=== PATIENT | female | born 1940 | race Caucasian/White ===

== ENCOUNTER 2018-03-24 16:26 | Outpatient (CLI) | payer MEDICARE, OTHER ==
[2018-03-24 17:12] LABS: BASOPHILS # (AUTO) 0.1 10^3/uL (0.0-0.1); BASOPHILS % (AUTO) 1.1 %; EOSINOPHILS # (AUTO) 0.2 10^3/uL (0.0-0.7); LYMPHOCYTES # (AUTO) 1.6 10^3/uL (1.5-3.5); LYMPHOCYTES % (AUTO) 20.4 %; MEAN CORPUSCULAR HEMOGLOBIN 32.6 pg (27.0-31.0); MEAN CORPUSCULAR HGB CONC 33.2 g/dL (32.0-36.0); MEAN CORPUSCULAR VOLUME 98.2 fL (81.0-99.0); MEAN PLATELET VOLUME 8.5 fL (7.9-10.8); MONOCYTES # (AUTO) 0.4 10^3/uL (0.0-1.0); MONOCYTES % (AUTO) 5.2 %; NEUTROPHILS # (AUTO) 5.5 10^3/uL (1.5-6.6); NEUTROPHILS % (AUTO) 71.3 %; PLT - PLATELET COUNT 178 10^3/uL (130-450); RED CELL DISTRIBUTION WIDTH 16.5 % (12.0-15.0); WHITE BLOOD COUNT 7.7 x10^3/uL (4.8-10.8)
[2018-03-24 17:20] LABS: ALBUMIN 4.1 g/dL (3.2-5.5); ALBUMIN/GLOBULIN RATIO 1.2 (1.0-2.2); BILIRUBIN,TOTAL 0.6 mg/dL (0.2-1.0); CALCIUM 9.5 mg/dL (8.5-10.3); CREATININE 1.1 mg/dL (0.4-1.0); TOTAL PROTEIN 7.5 g/dL (6.7-8.2)
== END 2018-03-24 16:27 | disposition home or self-care (01) ==
LOC: LAB 16:26
PROVIDERS: ATTEND Specialist/Technologist Athletic Trainer
DX: M05.79 Rheumatoid arthritis with rheumatoid factor of multiple sites without organ or systems involvement (principal)
CPT/HCPCS: 36415; 80053; 85025; 85651

== ENCOUNTER 2018-11-24 17:43 | Outpatient (CLI) | payer MEDICARE ==
[2018-11-24 18:09] LABS: BASOPHILS % (AUTO) 0.8 %; EOSINOPHILS % (AUTO) 4.5 %; HGB - HEMOGLOBIN 12.4 g/dL (12.0-16.0); LYMPHOCYTES % (AUTO) 42.2 %; MEAN CORPUSCULAR HEMOGLOBIN 32.1 pg (27.0-31.0); MEAN CORPUSCULAR HGB CONC 32.5 g/dL (32.0-36.0); MEAN PLATELET VOLUME 10.6 fL (7.9-10.8); MONOCYTES % (AUTO) 3.2 %; NEUTROPHILS % (AUTO) 48.5 %; PLT - PLATELET COUNT 214 10^3/uL (130-450); RED BLOOD COUNT 3.86 10^6/uL (4.20-5.40); RED CELL DISTRIBUTION WIDTH 17.2 % (12.0-15.0); WHITE BLOOD COUNT 5.3 x10^3/uL (4.8-10.8)
[2018-11-24 18:13] LABS: ABNORMAL LYMPHS % (MANUAL) 0 %; BAND NEUTROPHILS % (MANUAL) 0 %
[2018-11-24 18:32] LABS: ALBUMIN 3.9 g/dL (3.2-5.5); ALBUMIN/GLOBULIN RATIO 1.1 (1.0-2.2); CALCIUM 9.7 mg/dL (8.5-10.3); CREATININE 0.9 mg/dL (0.4-1.0); CRP - C-REACTIVE PROTEIN 1.2 mg/dL (0-1.0); TOTAL PROTEIN 7.5 g/dL (6.7-8.2)
[2018-11-24 19:11] LABS: EOSINOPHILS # (MANUAL) 0.5 10^3/uL (0-0.7); LYMPHOCYTES # (MANUAL) 2.4 10^3/uL (1.5-3.5); LYMPHOCYTES % (MANUAL) 42 %; MONOCYTES # (MANUAL) 0.2 10^3/uL (0.0-1.0)
[2018-11-24 19:13] LABS: DIFFERENTIAL COMMENT MANUAL DIFFERENTIAL; PLATELET ESTIMATE, MANUAL NORMAL (130-450,000) (NORMAL); PLATELET MORPHOLOGY NORMAL APPEARANCE (NORMAL)
== END 2018-11-24 17:44 | disposition home or self-care (01) ==
LOC: LAB 17:43
PROVIDERS: ATTEND Internal Medicine
DX: I10 Essential (primary) hypertension (principal); R10.84 Generalized abdominal pain; D64.9 Anemia, unspecified
CPT/HCPCS: 36415; 80053; 83540; 84466; 85025; 85651; 86140

== ENCOUNTER 2018-12-02 10:51 | Outpatient (CLI) | payer MEDICARE ==
--- NOTE | 2018-12-03 16:03 | XRAY Report ---
Reason: WEIGHT LOSS Procedure Date: 12/02/2018 Accession Number: [id number] / [id number] Procedure: XR - Chest 2 View X-Ray CPT Code: 88422 FULL RESULT: EXAM: CHEST RADIOGRAPHY EXAM DATE: 12/02/2018 11:05 AM. CLINICAL HISTORY: Weight loss. COMPARISON: None. TECHNIQUE: 2 views. FINDINGS: Lungs/Pleura: No focal opacities evident. No pleural effusion. No pneumothorax. Normal volumes. Mediastinum: Heart and mediastinal contours are unremarkable. Other: None. IMPRESSION: Normal 2-view chest radiography. RADIA
== END 2018-12-02 10:52 | disposition home or self-care (01) ==
LOC: DI 10:51
PROVIDERS: ATTEND Internal Medicine
DX: R63.4 Abnormal weight loss (principal)
CPT/HCPCS: 71046

== ENCOUNTER 2018-12-28 15:02 | Outpatient (CLI) | payer MEDICARE | END 2018-12-28 15:03 | disposition critical access hospital (66) | LOC: EMS 15:02 | PROVIDERS: ATTEND Surgery | DX: R53.83 Other fatigue (principal); R11.0 Nausea; R50.9 Fever, unspecified | CPT/HCPCS: A0425; A0429 ==

== ENCOUNTER 2018-12-28 15:17 | Emergency (ER) | payer MEDICARE ==
[2018-12-28 16:00] LABS: BASOPHILS % (AUTO) 0.3 %; EOSINOPHILS # (AUTO) 0.1 10^3/uL (0.0-0.7); EOSINOPHILS % (AUTO) 1.6 %; LYMPHOCYTES # (AUTO) 0.9 10^3/uL (1.5-3.5); LYMPHOCYTES % (AUTO) 12.7 %; MEAN CORPUSCULAR HEMOGLOBIN 32.7 pg (27.0-31.0); MEAN CORPUSCULAR HGB CONC 33.2 g/dL (32.0-36.0); MEAN CORPUSCULAR VOLUME 98.4 fL (81.0-99.0); MEAN PLATELET VOLUME 11.2 fL (7.9-10.8); MONOCYTES # (AUTO) 0.3 10^3/uL (0.0-1.0); MONOCYTES % (AUTO) 4.9 %; NEUTROPHILS # (AUTO) 5.4 10^3/uL (1.5-6.6); NEUTROPHILS % (AUTO) 79.8 %; PLT - PLATELET COUNT 111 10^3/uL (130-450); RED BLOOD COUNT 3.06 10^6/uL (4.20-5.40); RED CELL DISTRIBUTION WIDTH 17.5 % (12.0-15.0); WHITE BLOOD COUNT 6.8 x10^3/uL (4.8-10.8)
[2018-12-28 16:11] LABS: ALBUMIN 2.8 g/dL (3.2-5.5); ALBUMIN/GLOBULIN RATIO 0.9 (1.0-2.2); BILIRUBIN,TOTAL 0.6 mg/dL (0.2-1.0); CALCIUM 8.7 mg/dL (8.5-10.3); TOTAL PROTEIN 5.9 g/dL (6.7-8.2)
--- NOTE | 2018-12-28 16:14 | ED Physician Documentation ---
History of Present Illness - Stated complaint Stated Complaint: NAUSEA/ R SIDE RIB PAIN - Chief complaint Chief Complaint: Abd Pain - History obtained from History obtained from: Patient, Family - History of Present Illness Pain level max: 8 Pain level now: 4 - Additonal information Additional information: 78-year-old female presents to the emergency department with right upper quadrant abdominal pain for the past 6 to 8 weeks. She states she had an ultrasound and chest x-ray which she believes were normal. Pain has been intermittent. Worsening today. States she feels like she has had "low-grade" fevers at home today. Some nausea but no vomiting. Normal bowel movements. Nothing seems to make it better or worse. 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 : None HEENT: None Psych: None Musculoskeletal: Osteoarthritis Derm: None - Present Medications Home Medications: Ambulatory Orders Medication Instructions Recorded Confirmed Benazepril HCl 40 mg PO 12/28/18 Calcium Citrate 200 mg PO 12/28/18 Cephalexin [Keflex] 500 mg PO Q6H #28 capsule 12/28/18 Hydrocodone/Acetaminophen 1 - 2 each PO Q6H PRN #14 tablet 12/28/18 [Hydrocodon-Acetaminophen 5-325] Magnesium 500 mg PO DAILY 12/28/18 12/28/18 Meclizine [Antivert] 25 mg PO PRN PRN 12/28/18 12/28/18 Methotrexate 2.5 mg PO ONCE 12/28/18 12/28/18 Omeprazole Magnesium [Prilosec] 20 mg PO DAILY 12/28/18 12/28/18 Tofacitinib Citrate [Xeljanz] 1 mg PO DAILY 12/28/18 12/28/18 - Allergies Allergies/Adverse Reactions: Allergies Allergy/AdvReac Type Severity Reaction Status Date / Time No Known Drug Allergies Allergy Verified 12/28/18 15:23 - Social History Does the pt smoke?: No Smoking Status: Never smoker PD ED PE NORMAL - Vitals Vital signs reviewed: Yes - General General: Alert and oriented X 3, No acute distress - HEENT HEENT: Moist mucous membranes - Neck Neck: Supple, no meningeal sign - Cardiac Cardiac: RRR - Respiratory Respiratory: No respiratory distress, Clear bilaterally - Abdomen Abdomen: Soft, Non distended, Other (Tender to palpation right upper quadrant. Positive Abdul sign) - Back Back: No CVA TTP, No spinal TTP - Derm Derm: Warm and dry - Extremities Extremities: No edema - Neuro Neuro: Alert and oriented X 3 - Psych Psych: Normal mood, Normal affect Results - Vitals Vitals: Vital Signs - 24 hr 12/28/18 12/28/18 12/28/18 15:21 15:50 16:05 Temperature 37.0 C Heart Rate 94 87 87 Respiratory 15 18 16 Rate Blood Pressure 140/59 H 104/55 L 105/48 L O2 Saturation 99 97 98 12/28/18 12/28/18 18:46 19:46 Temperature 37.3 C Heart Rate 74 77 Respiratory 16 20 Rate Blood Pressure 129/62 140/65 H O2 Saturation 100 100 Oxygen O2 Source Room air - Labs Labs: Laboratory Tests 12/28/18 12/28/18 12/28/18 15:53 15:53 19:00 WBC 6.8 RBC 3.06 L Hgb 10.0 L Hct 30.1 L MCV 98.4 MCH 32.7 H MCHC 33.2 RDW 17.5 H Plt Count 111 L MPV 11.2 H Neut # (Auto) 5.4 Lymph # (Auto) 0.9 L [place] # (Auto) 0.3 Eos # (Auto) 0.1 Baso # (Auto) 0.0 Absolute Nucleated RBC 0.00 Nucleated RBC % 0.0 Manual Slide Review Indicated WBC Morphology NORMAL APPEARANCE Platelet Estimate NORMAL (130-450,000) Platelet Morphology NORMAL APPEARANCE RBC Morph Micro Appear SCHISTOCYTES Sodium 131 L Potassium 4.4 Chloride 99 L Carbon Dioxide 21 Anion Gap 11.0 BUN 30 H Creatinine 1.0 Estimated GFR (MDRD) 54 L Glucose 107 H Calcium 8.7 Total Bilirubin 0.6 AST 30 ALT 19 Alkaline Phosphatase 71 Total Protein 5.9 L Albumin 2.8 L Globulin 3.1 Albumin/Globulin Ratio 0.9 L Lipase 23 Urine Color YELLOW Urine Clarity CLOUDY Urine pH 5.5 Ur Specific [place] 1.010 Urine Protein NEGATIVE Urine Glucose (UA) NEGATIVE Urine Ketones NEGATIVE Urine Occult Blood TRACE-LYSE Urine Nitrite POSITIVE H Urine Bilirubin NEGATIVE Urine Urobilinogen 0.2 (NORMAL) Ur Leukocyte Esterase MODERATE H Urine RBC 0-5 Urine WBC >25 H Ur Squamous Epith Cells FEW Squamous Urine Bacteria Few Urine Casts 0-2 Granular Casts Ur Microscopic Review INDICATED Urine Culture Comments INDICATED - Rads (name of study) RUQ US Radiology: Prelim report reviewed, EMP read contemporaneously, See rad report (1. No gallstones or findings of acute cholecystitis. 2. Suspicious for a right adrenal mass measuring 4.1 x 3 cm. Differential would include both benign adenoma and malignant adrenal neoplasm. Chronicity indeterminate. 3. Small hypoechoic lesion in the right lobe of the liver is nonspecific. Differential diagnosis including complex cyst and benign or malignant mass measuring 0.9 cm in maximum diameter. Indeterminate stability. ) CT abd/pelvis Radiology: Prelim report reviewed, EMP read contemporaneously, See rad report (1. Large right adrenal mass measuring 67 mm in maximum diameter. Given the large size, primary or metastatic malignant process should be considered. Hemorrhage into the adrenal gland not excluded. 2. Tiny liver hypodensities are too small to characterize. 3. There are 2 tiny nonspecific 3 mm right lower lobe lung nodules which are more likely benign. ) PD MEDICAL DECISION MAKING - ED course Complexity details: reviewed results, re-evaluated patient, considered differential, d/w patient, d/w family ED course: 78-year-old female presents to the emergency department with several months of right upper quadrant pain. She appears to have a large right adrenal mass. This will likely need biopsy and further work-up. She is well-appearing, nontoxic. Afebrile. Tolerating p.o. without difficulty. No significant lab a bnormalities at this time. We will follow-up with her doctor in the next day or 2 for further care. Will likely need a biopsy set up. Patient counseled regarding signs and symptoms for which I believe and urgent re-evaluation would be necessary. Patient with good understanding of and agreement to plan and is comfortable going home at this time This document was made in part using voice recognition software. While efforts are made to proofread this document, sound alike and grammatical errors may occur. Patient also has a UTI. Given Rocephin and will place on oral antibiotics. Departure - Departure Disposition: 01 Home, Self Care Clinical Impression: Adrenal mass Abdominal pain Qualifiers: Abdominal location: unspecified location Qualified Code(s): R10.9 - Unspecified abdominal pain Anemia Qualifiers: Anemia type: unspecified type Qualified Code(s): D64.9 - Anemia, unspecified Condition: Good Instructions: ED Abdominal Pain Unkn Cause, ED UTI Cystitis Female Follow-Up: Chepe Milton MD [Provider Admit Priv/Credential] - Within 3 Days Kimo Anguiano MD [Primary Care Provider] - Within 3 Days Prescriptions: Cephalexin [Keflex] 500 mg PO Q6H #28 capsule Hydrocodone/Acetaminophen [Hydrocodon-Acetaminophen 5-325] 1 - 2 each PO Q6H PRN #14 tablet PRN Reason: pain Comments: Return if you worsen. You will likely need a biopsy of the mass. Follow up with Dr. Milton for this referral to intervential radiology and possibly oncology. Do not drink alcohol or drive while on narcotic pain medicine. Note that many narcotic pain relievers also contain tylenol/acetaminophen. Please ensure that your total dose of acetaminophen from all sources does not exceed 3 grams (3000mg) per day. You may constipated on this medication, take a stool softener such as "Colace" twice a day while you are on it. Also recommend a [id number] laxative such as senna or MiraLAX any day that you do not have a bowel movement. If you received narcotic pain medication in the emergency department, do not drive or operate machinery for the next [address] results are as follows. 1. Large right adrenal mass measuring 67 mm in maximum diameter. Given the large size, primary or metastatic malignant process should be considered. Hemorrhage into the adrenal gland not excluded. 2. Tiny liver hypodensities are too small to characterize. 3. There are 2 tiny nonspecific 3 mm right lower lobe lung nodules which are more likely benign. Discharge Date/Time: 12/28/18 20:02
[2018-12-28 16:52] LABS: PLATELET ESTIMATE, MANUAL NORMAL (130-450,000) (NORMAL); PLATELET MORPHOLOGY NORMAL APPEARANCE (NORMAL)
[2018-12-28] MEDS ORDERED: SODIUM CHLORIDE 0.9% 1,000 ML IV ONE (17:02)
[2018-12-28] MEDS ORDERED: IOVERSOL 320 100 ML VIAL IVP ONE ×2 (18:15→18:30)
--- NOTE | 2018-12-28 18:36 | Ultrasound Report ---
Reason: RUQ abd pain Procedure Date: 12/28/2018 Accession Number: [id number] / [id number] Procedure: US - Abdomen Limited CPT Code: FULL RESULT: EXAM: ABDOMEN ULTRASOUND LIMITED, RUQ EXAM DATE: 12/28/2018 05:57 PM. CLINICAL HISTORY: RUQ abd pain. COMPARISON: ABDOMEN ULTRASOUND COMPLETE 11/04/2018 2:57 PM. TECHNIQUE: Real-time scanning was performed with static images obtained. FINDINGS: Liver: The liver parenchyma is heterogeneous. There are multiple calcifications within the liver. There is a hypoechoic lesion without posterior acoustic enhancement in the right lobe of the liver measuring 0.8 x 0.7 x 0.9 cm with indeterminant features. 13.2 cm. Main portal vein flow: Hepatopetal. Gallbladder: No gallstones or sludge. Gallbladder wall thickness is normal at 2 mm. Negative ultrasound Abdul's sign. Biliary System: CBD measures 4 mm. No intrahepatic or extrahepatic ductal dilatation. Other: The right kidney measures 10.1 cm in length. Right kidney not optimally seen. There is no hydronephrosis. There is a small cortical cyst measuring 0.5 x 0.6 x 0.7 cm. Superior to the right kidney is a mass measuring 4.1 x 3 cm suspicious for adrenal nodule. IMPRESSION: 1. No gallstones or findings of acute cholecystitis. 2. Suspicious for a right adrenal mass measuring 4.1 x 3 cm. Differential would include both benign adenoma and malignant adrenal neoplasm. Chronicity indeterminate. 3. Small hypoechoic lesion in the right lobe of the liver is nonspecific. Differential diagnosis including complex cyst and benign or malignant mass measuring 0.9 cm in maximum diameter. Indeterminate stability. [facility]
--- NOTE | 2018-12-28 19:05 | CT Report ---
Reason: R sided abd pain Procedure Date: 12/28/2018 Accession Number: [id number] / [id number] Procedure: CT - Abdomen/Pelvis W CPT Code: FULL RESULT: EXAM: CT ABDOMEN AND PELVIS EXAM DATE: 12/28/2018 06:27 PM. CLINICAL HISTORY: R sided abd pain. COMPARISONS: None. TECHNIQUE: Routine helical CT imaging was performed through the abdomen and pelvis. IV contrast: OPTI 320 90ML. Enteric contrast: No. Reconstructions: Coronal and sagittal. In accordance with CT protocol optimization, one or more of the following dose reduction techniques were utilized for this exam: automated exposure control, adjustment of mA and/or KV based on patient size, or use of iterative reconstructive technique. FINDINGS: Lung Bases: There is a 3 mm right lower lobe nodule image 6 series 3. There is a subpleural 3 mm right lower lobe nodule image 12. No pleural effusion. Liver: There is a right lobe 5 mm hypodense lesion on image 24 which is too small to characterize. The liver vessels are patent. There is no intrahepatic biliary dilatation. Gallbladder/Bile Ducts: No calcified gallstones or focal inflammation around the gallbladder. Spleen: Normal. Pancreas: Normal. Adrenal Glands: There is a mass involving the right adrenal gland. This mass measures 67 x 35 x 51 mm. Mass displaces the inferior vena cava anteriorly. The left adrenal gland is not seen. 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 There are small cortical cysts in the left kidney. No significant hydronephrosis. Peritoneal Cavity/Bowel: The bowel is normal in caliber. No bowel obstruction or perforation. No free fluid or free air. Pelvic Organs: Urinary bladder is empty. Uterus not visualized. Vasculature: There is moderate diffuse calcification of the abdominal aorta without an aneurysm. Bones: No significant abnormality. Other: None. IMPRESSION: 1. Large right adrenal mass measuring 67 mm in maximum diameter. Given the large size, primary or metastatic malignant process should be considered. Hemorrhage into the adrenal gland not excluded. 2. Tiny liver hypodensities are too small to characterize. 3. There are 2 tiny nonspecific 3 mm right lower lobe lung nodules which are more likely benign. [facility]
[2018-12-28 19:11] LABS: BILIRUBIN,URINE NEGATIVE (NEGATIVE); GLUCOSE, URINE (UA) NEGATIVE (NEGATIVE); KETONES,URINE (UA) NEGATIVE (NEGATIVE); LEUKOCYTE ESTERASE, URINE MODERATE (NEGATIVE); NITRITE,URINE POSITIVE (NEGATIVE); OCCULT BLOOD,URINE TRACE-LYSE (NEGATIVE); PH,URINE 5.5 PH (5.0-7.5); PROTEIN,URINE NEGATIVE (NEGATIVE); UROBILINOGEN,URINE 0.2 (NORMAL) E.U./dL (NORMAL)
[2018-12-28 19:12] LABS: CLARITY,URINE CLOUDY (CLEAR)
[2018-12-28 19:24] LABS: BACTERIA,URINE Few /HPF (None Seen); RBC,URINE 0-5 /HPF (0-5); SQUAMOUS EPITHELIAL CELL,UR FEW Squamous (<= Few)
[2018-12-28] MEDS ORDERED: cefTRIAXone 1 GM VIAL IVP STA (19:40)
[2018-12-28 19:47] VITALS: BP 140/65
== END 2018-12-28 20:02 | disposition home or self-care (01) ==
LOC: EDUNIT# → ED 15:17
DX: E27.8 Other specified disorders of adrenal gland (principal); R10.11 Right upper quadrant pain; N39.0 Urinary tract infection, site not specified; D64.9 Anemia, unspecified; I10 Essential (primary) hypertension; R91.8 Other nonspecific abnormal finding of lung field
CPT/HCPCS: 36415; 74177; 76705; 80053; 81001; 83690; 85025; 87077; 87086; 87181; 96361; 96374; 99283; 99284; Q9967; 81003

== ENCOUNTER 2019-01-21 07:00 | Outpatient (CLI) | payer MEDICARE ==
[2019-01-26 09:06] LABS: METANEPHRINE <12 mcg/24 h (90-315); NORMETANEPHRINE 388 mcg/24 h (122-676); TOTAL VOLUME 1200 mL
== END 2019-01-21 23:59 | disposition home or self-care (01) ==
LOC: LAB.R 07:00
PROVIDERS: ATTEND Surgery
DX: E27.8 Other specified disorders of adrenal gland (principal)
CPT/HCPCS: 81599; 82530; 82570; 83835

== ENCOUNTER 2019-02-13 12:16 | Outpatient (CLI) | payer MEDICARE ==
--- NOTE | 2019-02-16 08:35 | CT Report ---
Reason: ADRENAL MASS RT Procedure Date: 02/13/2019 Accession Number: [id number] / [id number] Procedure: CT - CHEST WO CPT Code: Final Report FULL RESULT: EXAM: CT CHEST EXAM DATE: 02/13/2019 12:47 PM. CLINICAL HISTORY: ADRENAL MASS RT. COMPARISONS: ABDOMEN/PELVIS W/ 12/28/2018 6:19 PM. TECHNIQUE: Routine helical CT imaging was performed through the chest. IV contrast: None. Reconstructions: Coronal and sagittal. In accordance with CT protocol optimization, one or more of the following dose reduction techniques were utilized for this exam: automated exposure control, adjustment of mA and/or KV based on patient size, or use of iterative reconstructive technique. FINDINGS: Lungs/Pleura: No nodules, bronchial thickening, consolidation, or edema. Pulmonary vasculature is normal. No pericardial or pleural effusion. No pneumothorax. Mediastinum: There is a right lower paratracheal lymph node measuring up to 8 mm in short axis. No axillary lymphadenopathy. Coronary artery calcifications are present. Atherosclerotic disease of the thoracic aorta is noted. Severe mitral annular calcifications also present. Bones: Unremarkable. Visualized Abdomen: The previously described right adrenal mass is not well visualized on this examination due to lack of IV contrast. Within this limitation, the mass appears to have decreased in size measuring approximately 3.3 x 1.6 cm, previously 6.7 x 3.5 cm. Other: Moderate left-sided hydronephrosis is new from the prior examination. IMPRESSION: 1. The previously described mass in the right adrenal gland has decreased significantly in size since prior examination though it is less well visualized due to lack of IV contrast, measuring 3.3 x 1.6 cm, previously 6.7 x 3.5 cm. 2. No pulmonary lesions identified. 3. There is a benign-appearing right lower paratracheal lymph measuring up to 8 mm in short axis with a well retained fatty hilum. Otherwise, no axillary, mediastinal or hilar lymphadenopathy. [facility]
== END 2019-02-13 12:17 | disposition home or self-care (01) ==
LOC: DI 12:16
PROVIDERS: ATTEND Surgery Surgical Oncology
DX: E27.8 Other specified disorders of adrenal gland (principal)
CPT/HCPCS: 71250

== ENCOUNTER 2019-02-19 11:24 | Outpatient (CLI) | payer MEDICARE | END 2019-02-19 11:25 | disposition home or self-care (01) | LOC: DI 11:24 | PROVIDERS: ATTEND Anesthesiology | DX: I08.0 Rheumatic disorders of both mitral and aortic valves (principal); I44.7 Left bundle-branch block, unspecified; C74.90 Malignant neoplasm of unspecified part of unspecified adrenal gland; I27.20 Pulmonary hypertension, unspecified | CPT/HCPCS: 93306 ==

== ENCOUNTER 2019-04-20 10:44 | Outpatient (CLI) | payer MEDICARE ==
[2019-04-20] MEDS ORDERED: IOVERSOL 320 100 ML VIAL IVP ONE ×2 (10:52→13:04)
--- NOTE | 2019-04-20 15:56 | CT Report ---
Reason: ADRENAL TUMOR Procedure Date: 04/20/2019 Accession Number: [id number] / [id number] Procedure: CT - Abdomen/Pelvis W CPT Code: Final Report FULL RESULT: EXAM: CT ABDOMEN AND PELVIS EXAM DATE: 04/20/2019 11:31 AM. CLINICAL HISTORY: Adrenal tumor. Postop removal. Assess for recurrence. COMPARISONS: ABDOMEN/PELVIS W/ 12/28/2018 6:19 PM CHEST W/O 02/13/2019 12:41 PM ABDOMEN LIMITED 12/28/2018 4:30 PM. TECHNIQUE: Routine helical CT imaging was performed through the abdomen and pelvis. IV contrast: OPTI 320 90ML. Enteric contrast: No. Reconstructions: Coronal and sagittal. In accordance with CT protocol optimization, one or more of the following dose reduction techniques were utilized for this exam: automated exposure control, adjustment of mA and/or KV based on patient size, or use of iterative reconstructive technique. FINDINGS: Lung Bases: Lung bases are clear. Heart size normal. Mitral annular calcification. Small hiatal hernia. Liver: No hepatic lesions. Patent portal vein. Gallbladder/Bile Ducts: Unremarkable. Spleen: Normal. Pancreas: Pancreatic parenchymal volume loss. No peripancreatic edema. Adrenal Glands: Absent right adrenal gland. No adjacent masses or nodules are identified, particularly in the right adrenal bed status post resection. No new right adrenal mass. Left adrenal gland not well seen. Kidneys: Extrarenal pelvises are seen and there is slight malrotation of the lower pole of both kidneys again evident. Bilateral renal low-attenuation lesions are again seen possibly cysts. Peripelvic cysts are seen on the left. No hydronephrosis. Peritoneal Cavity/Bowel: Stomach is mildly distended and unremarkable. No small bowel obstruction or small bowel wall thickening. Postsurgical changes along the subcutaneous right abdominal wall. Moderate volume of stool in the colon. No diverticulitis. No enlarged retroperitoneal or mesenteric lymph nodes. No retroperitoneal or mesenteric masses are identified. Appendix not distinctly visualized. Pelvic Organs: Urinary bladder is moderately distended and unremarkable. The uterus is absent. No pelvic adenopathy. No pelvic free fluid. Vasculature: Vascular calcifications. No aneurysm. Mesenteric vasculature is patent. No occlusion. Bones: Degenerative changes of the lower thoracic and lumbar spine. Grade 1 anterolisthesis of L4 on L5. Lumbar facet arthropathy. Levoscoliosis of the lumbar spine. No osseous lesions. Other: None. IMPRESSION: 1. Status post resection of right adrenal mass. No evidence of recurrent masses or nodules are seen at the site of resection. No fluid collections. 2. No abdominal or pelvic lymphadenopathy. No evidence of metastatic disease. 3. Bilateral renal low-attenuation lesions. Extrarenal pelvises and left peripelvic cysts, stable. 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 [facility]
== END 2019-04-20 10:45 | disposition home or self-care (01) ==
LOC: DI 10:44
PROVIDERS: ATTEND Internal Medicine Endocrinology, Diabetes & Metabolism
DX: D49.7 Neoplasm of unspecified behavior of endocrine glands and other parts of nervous system (principal); E89.6 Postprocedural adrenocortical (-medullary) hypofunction; N28.9 Disorder of kidney and ureter, unspecified; Q61.02 Congenital multiple renal cysts; Q63.2 Ectopic kidney
CPT/HCPCS: 74177; Q9967

== ENCOUNTER 2019-09-29 18:01 | Observation (INO) | payer MEDICARE ==
--- NOTE | 2019-09-29 18:12 | ED Physician Documentation ---
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 HEENT: None Psych: None Musculoskeletal: Osteoarthritis Derm: None - Present Medications Home Medications: Ambulatory Orders Medication Instructions Recorded Confirmed Benazepril HCl 40 mg PO 12/28/18 Calcium Citrate 200 mg PO 12/28/18 Meclizine [Antivert] 25 mg PO PRN PRN 12/28/18 12/28/18 Omeprazole Magnesium [Prilosec] 20 mg PO DAILY 12/28/18 12/28/18 Tofacitinib Citrate [Xeljanz] 1 mg PO DAILY 12/28/18 12/28/18 Hydrocortisone 5 mg PO QPM 09/29/19 09/29/19 Hydrocortisone 15 mg PO DAILY 09/29/19 09/29/19 - Allergies Allergies/Adverse Reactions: Allergies Allergy/AdvReac Type Severity Reaction Status Date / Time No Known Drug Allergies Allergy Verified 09/29/19 18:04 - Social History Does the pt smoke?: No Smoking Status: Never smoker PD ED PE NORMAL - Vitals Vital signs reviewed: Yes - General General: Alert and oriented X 3, Other (Hard of hearing) - Respiratory Respiratory: No respiratory distress, Clear bilaterally - Extremities Extremities: No edema, No calf tenderness / cord - Neuro Neuro: Alert and oriented X 3, Normal speech Results - Vitals Vitals: Vital Signs - 24 hr 09/29/19 09/29/19 09/29/19 18:04 18:07 19:53 Temperature 36.5 C Heart Rate 82 80 80 Respiratory 14 16 16 Rate Blood Pressure 144/59 H 136/58 H O2 Saturation 98 98 Oxygen O2 Source Room air - EKG (time done) 1815 Rate: Rate (enter#) (76) Rhythm: NSR Intervals: LBBB Computer interpretation: Agree with computer - Labs Labs: Laboratory Tests 09/29/19 09/29/19 18:38 18:38 WBC 9.7 RBC 3.08 L Hgb 9.4 L Hct 29.5 L MCV 95.8 MCH 30.5 MCHC 31.9 L RDW 17.6 H Plt Count 242 MPV 9.9 Neut # (Auto) 5.0 Lymph # (Auto) 3.6 [place] # (Auto) 0.9 Eos # (Auto) 0.1 Baso # (Auto) 0.0 Absolute Nucleated RBC 0.00 Nucleated RBC % 0.0 Sodium 131 L Potassium 6.5 H* Chloride 100 L Carbon Dioxide 24 Anion Gap 7.0 BUN 37 H Creatinine 1.5 H Estimated GFR (MDRD) 34 L Glucose 101 H Calcium 8.8 PD MEDICAL DECISION MAKING - ED course ED course: 79-year-old woman presents from an outpatient setting with labs showing hyperkalemia. Initially given the circumstances I suspected it would be pseudohyperkalemia but it was confirmed on her labs here and she was administered insulin and glucose, IV fluids, high-dose albuterol, and calcium gluconate. Kayexalate was held given the lack of proven efficacy for this medication. Dr. Carolina is observing. Departure - Departure Disposition: ED Place in Observation Clinical Impression: Hyperkalemia Condition: Good Discharge Date/Time: 09/29/19 21:02
[2019-09-29 19:00] LABS: CALCIUM 8.8 mg/dL (8.5-10.3); CREATININE 1.5 mg/dL (0.4-1.0)
[2019-09-29] MEDS ORDERED: SODIUM CHLORIDE 0.9% 1,000 ML IV STA (19:03)
[2019-09-29] MEDS ORDERED: DEXTROSE 50% ABBOJECT 25 GM/50 ML SYRINGE IVP STA (19:03)
[2019-09-29] MEDS ORDERED: INSULIN REGULAR HUMAN 100 UNIT/1 ML 10 ML MDV IVP STA (19:03)
[2019-09-29] MEDS ORDERED: ALBUTEROL NEB 2.5 MG/3 ML INH STA (19:03)
[2019-09-29] MEDS ORDERED: CALCIUM GLUCONATE 1,000 MG in SODIUM CHLORIDE 0.9% 50 ML IV STA (19:03)
[2019-09-29 19:19] LABS: BASOPHILS % (AUTO) 0.4 %; EOSINOPHILS # (AUTO) 0.1 10^3/uL (0.0-0.7); EOSINOPHILS % (AUTO) 1.4 %; HGB - HEMOGLOBIN 9.4 g/dL (12.0-16.0); LYMPHOCYTES # (AUTO) 3.6 10^3/uL (1.5-3.5); LYMPHOCYTES % (AUTO) 37.3 %; MEAN CORPUSCULAR HEMOGLOBIN 30.5 pg (27.0-31.0); MEAN CORPUSCULAR HGB CONC 31.9 g/dL (32.0-36.0); MEAN CORPUSCULAR VOLUME 95.8 fL (81.0-99.0); MEAN PLATELET VOLUME 9.9 fL (7.9-10.8); MONOCYTES # (AUTO) 0.9 10^3/uL (0.0-1.0); MONOCYTES % (AUTO) 9.2 %; NEUTROPHILS % (AUTO) 51.2 %; PLT - PLATELET COUNT 242 10^3/uL (130-450); RED BLOOD COUNT 3.08 10^6/uL (4.20-5.40); RED CELL DISTRIBUTION WIDTH 17.6 % (12.0-15.0); WHITE BLOOD COUNT 9.7 x10^3/uL (4.8-10.8)
[2019-09-29] MEDS ORDERED: ACETAMINOPHEN 325 MG TABLET PO PRN (20:15)
[2019-09-29] MEDS ORDERED: SODIUM CHLORIDE FLUSH 0.9% 10 ML SYRINGE IVP PRN (20:15)
[2019-09-29] MEDS ORDERED: ONDANSETRON 4 MG/2 ML VIAL IVP PRN (20:15)
--- NOTE | 2019-09-29 20:23 | HISTORY & PHYSICAL EXAMINATION ---
Chief Complaint - Chief Complaint Chief Complaint: High potassium History of Present Illness - Admitted From Admitted From:: Home - History Obtained From Records Reviewed: Yes History obtained from: Patient, ER Physician, EMR - History of Present Illness HPI Comment/Other: This is a 79-year-old female with a past medical history significant for rheu matoid arthritis, hypertension, bilateral adrenalectomies on hydrocortisone who presents today after having routine lab work at her buckshot swage operator which revealed an elevated potassium. She reports feeling well overall and does not have any acute complaints. She reports being in her usual state of health and she saw her buckshot swage operator today in [place] for routine visit and routine blood work and was instantly found to have an elevated potassium. She states she did have an elevated potassium reading about 12 to 13 years ago when she was living in [place] but that she was not hospitalized for it. She reports feeling thirsty these past few days and has been trying to drink water but she feels she can always drink a little more. She reports no chest pain, dyspnea, fevers, chills. She states rheumatoid arthritis has been controlled on Xeljanz. She also takes hydrocortisone 15 mg in the morning and 5 mg in the evening after she had bilateral adrenalectomies with the most recent colectomy being last year for a suspected malignancy. In the emergency department, she was found to have a potassium of 6.5. Her EKG shows sinus rhythm with a left bundle branch block. There is no prior EKG to compare to but prior echocardiogram performed February 2019 was obtained for left bundle branch block so this is not a new finding for her. She was given 8 units of IV insulin, dextrose, calcium gluconate, and albuterol 10 mg in the emergency department. Medicine was consulted for observation given the hyperkalemia. I did discuss goals of care with the patient she would like to be a full code. History - Past Medical History Cardiovascular: reports: Hypertension, Murmur Respiratory: reports: None Neuro: reports: None Endocrine/Autoimmune: reports: Other (Bilateral adrernalectomies.) GI: reports: GERD DIRECTOR DENTAL SERVICES: reports: None : reports: None HEENT: reports: None Psych: reports: None Musculoskeletal: reports: Rheumatoid arthritis Derm: reports: None - Family & Social History Family History Comment/Other: She reports that 2 of her brothers had open heart surgery and both of them had cancers although she is not sure what kind of cancer. She states her parents also had cardiac history although she is not sure what it was. Living arrangement: At home Living Situation: With spouse/s.o. Social History Notes: She lives at home with her family. She is a non-smoker. She will have alcoholic beverage 1-2 times a year when visiting her daughters live in [place]. Denies any drug use. - Substance History Use: Uses substance without health or social issues: NONE Meds/Allgy - Home Medications Home Medications: Ambulatory Orders Medication Instructions Recorded Confirmed Benazepril HCl 40 mg PO 12/28/18 Calcium Citrate 200 mg PO 12/28/18 Meclizine [Antivert] 25 mg PO PRN PRN 12/28/18 12/28/18 Omeprazole Magnesium [Prilosec] 20 mg PO DAILY 12/28/18 12/28/18 Tofacitinib Citrate [Xeljanz] 1 mg PO DAILY 12/28/18 12/28/18 Hydrocortisone 5 mg PO QPM 09/29/19 09/29/19 Hydrocortisone 15 mg PO DAILY 09/29/19 09/29/19 - Allergies Allergies/Adverse Reactions: Allergies Allergy/AdvReac Type Severity Reaction Status Date / Time No Known Drug Allergies Allergy Verified 09/29/19 18:04 Review of Systems - Constitutional Constitutional: denies: Fatigue, Fever, Chills, Malaise, Weakness, Poor appetite - Ears, Nose & Throat Ears, Nose & Throat: denies: Nasal discharge, Nasal congestion - Cardiovascular Cariovascular: denies: Chest pain, Edema, Exertional dyspnea, Decr. exercise tolerance - Respiratory Respiratory: denies: Cough, SOB at rest, SOB with exertion - Gastrointestinal Gastrointestinal: denies: Abdominal pain, Nausea, Vomiting - Genitourinary Genitourinary: denies: Dysuria, Frequency, Urgency - Musculoskeletal Musculoskeletal: denies: Muscle pain, Joint pain - Integumentary Integumentary: denies: Rash - Neurological Neurological: denies: General weakness, Focal weakness, Dizziness, Numbness - Endocrine Endocrine: denies: Polyuria, Polydypsia - All Other Systems All Other Systems: reports: Reviewed and negative Prior Level of Functionality: She is independent with her ADL's. Exam - Vital Signs Reviewed Vital Signs: Yes Vital Signs: Vital Signs x48h Temp Pulse Resp BP Pulse Ox 09/29/19 19:53 80 16 09/29/19 18:07 80 16 136/58 H 98 09/29/19 18:04 36.5 C 82 14 144/59 H 98 - Physical Exam General Appearance: positive: No acute distress, Alert Eyes Bilateral: positive: Normal inspection ENT: positive: ENT inspection nml, Pharynx nml, Dry mucous membranes Neck: positive: Nml inspection Respiratory: positive: No respiratory distress. negative: Wheezes, Rales, Rhonchi Cardiovascular: positive: Tachycardia, Systolic murmur. negative: Regular rate & rhythm, No murmur, Bradycardia Abdomen: positive: Non-tender, No distention. negative: Tenderness, Guarding, Rebound Skin: positive: No rash, Warm, Dry Extremities: positive: Full ROM, No pedal edema Neurologic/Psychiatric: positive: Oriented x3, Motor nml. negative: Disoriented to person, Disoriented to place, Disoriented to time Conclusion/Plan - Problem List (1) Hyperkalemia Conclusion/Plan: She presents with a potassium of 6.5 without any EKG changes. Suspect may be related to her MARISOL inhibitor as well as component of renal insufficiency given her elevated creatinine. She was given insulin, dextrose in the emergency department. We will hold her home benazepril and recheck labs this evening and in the morning. We will start her on IV saline. We will hope to discharge her tomorrow off of an MARISOL inhibitor once her potassium returned to normal limits and have her follow up on outpatient basis. (2) Acute kidney injury Conclusion/Plan: Creatinine is elevated at 1.5 and prior labs suggest a baseline of approximately 1.0. We will hydrate her with IV saline and recheck renal function in the morning. We will discontinue her benazepril. Monitor urine output. If her renal function has not improved, will consider further work-up such as imaging to rule out obstruction. (3) Hyponatremia Conclusion/Plan: Suspect hypovolemic hyponatremia given she appears dry on exam. We will start her on IV saline and recheck her sodium in the morning. (4) Rheumatoid arthritis Conclusion/Plan: Stable. We will continue her home medications. (5) Adrenal insufficiency Conclusion/Plan: This is due to bilateral adrenalectomies. She is on chronic hydrocortisone therapy. Given her hyperkalemia, will check an a.m. cortisol. We will continue her current dose of hydrocortisone at this time. (6) Hypertension Conclusion/Plan: Her blood pressure stable with systolic in the 130s. We will likely switch her to amlodipine on discharge and discontinue the benazepril given the hyperkalemia until she follows up on an outpatient basis. Continue to monitor during this hospitalization. - Lab Results Lab results reviewed: Yes Ascencion Bones: 09/29/19 18:38 09/29/19 18:38 - EKG Results EKG Interpreted Independently: Yes Core Measures - Anticipated LOS I expect patient to be DC'd or transferred within 96 hours.: Yes - Issues Hospital Issues and Management Plan: 79-year-old female found to have hyperkalemia on routine labs admitted for observation. Was given insulin, dextrose. Will observe overnight and treat with IV fluids. - DVT/VTE - Prophylaxis VTE/DVT Device ordered at admit?: Yes VTE/DVT Prophylaxis med ordered at admit?: No Not Ordered - Medical Reason: Not indicated
[2019-09-29 21:37] LABS: BILIRUBIN,URINE NEGATIVE (NEGATIVE); GLUCOSE, URINE (UA) NEGATIVE (NEGATIVE); KETONES,URINE (UA) NEGATIVE (NEGATIVE); LEUKOCYTE ESTERASE, URINE SMALL (NEGATIVE); NITRITE,URINE NEGATIVE (NEGATIVE); OCCULT BLOOD,URINE NEGATIVE (NEGATIVE); PROTEIN,URINE NEGATIVE (NEGATIVE); UROBILINOGEN,URINE 0.2 (NORMAL) E.U./dL (NORMAL)
[2019-09-29 21:38] LABS: CLARITY,URINE CLEAR (CLEAR)
[2019-09-29 21:43] LABS: RBC,URINE 0-5 /HPF (0-5)
[2019-09-29 21:44] LABS: BACTERIA,URINE Rare /HPF (None Seen); SQUAMOUS EPITHELIAL CELL,UR FEW Squamous (<= Few)
[2019-09-29] MEDS: SODIUM CHLORIDE 0.9% 1,000 ML IV SCH (22:04)
[2019-09-29 22:36] LABS: CALCIUM 9.1 mg/dL (8.5-10.3); CREATININE 1.4 mg/dL (0.4-1.0)
[2019-09-30] MEDS: SODIUM CHLORIDE FLUSH 0.9% 10 ML SYRINGE IVP SCH ×3 (00:50→17:15)
[2019-09-30 06:04] LABS: CALCIUM 8.5 mg/dL (8.5-10.3); CREATININE 1.3 mg/dL (0.4-1.0)
[2019-09-30] MEDS ORDERED: HYDROCORTISONE 10 MG TABLET PO SCH ×3 (08:00→21:00)
[2019-09-30] MEDS: SODIUM CHLORIDE 0.9% 1,000 ML IV SCH (08:22)
[2019-09-30] MEDS ORDERED: HYDROCORTISONE 10 MG TABLET PO ONE (09:00)
[2019-09-30] MEDS ORDERED: INSULIN REGULAR HUMAN 300 UNIT/3 ML VIAL IVP SCH (14:38)
[2019-09-30] MEDS ORDERED: DEXTROSE 50% ABBOJECT 25 GM/50 ML SYRINGE IVP SCH (14:39)
--- NOTE | 2019-09-30 16:11 | PHARMACY PROGRESS NOTE ---
- Best Possible Medication History Admit Date and Time: 09/29/192014 Processed by: Pharmacy Medication History completed: Yes Patient Interview: Completed Secondary Source(s): Pharmacy records, Insurance records As the person ultimately responsible for medication therapy, providers are able to order a medication from an existing home medication list in [facility] via the "Reconcile Routine" prior to Confirmation of that medication by peer support specialist. Such practice is discouraged except when the physician, in their clinical judgment, deems that a medical need exists for a medication without regard to previous use.
--- NOTE | 2019-09-30 18:55 | Discharge Plan ---
Discharge Plan Problem Reviewed?: Yes Disposition: Home, Self Care Condition: Fair Diet: Low Sodium (Low Potassium diet as well) Activity Restrictions: Activity as Tolerated Instruction Topics: Disease Kidney Redu Potassium Food Health Concerns: You were here in Observation status to treat a dangerously high serum potassium level. The level keeps rising up, after dropping with treatment, which means it needs closer further management soon by your PCP. The reason for the high potassium appears to be from 1) an inadequate hydrocortisone dose, 2) Benazepril use, which retains potassium and 3) potassium in your diet. The Hydrocortisone dose should be increased: 20 mg in the morning and 7.5 mg at night. Stop taking Benazepril. Resume all your other medicines pre-as you took before this hospitalization. Please come in tomorrow for an outpatient blood test, to see if the potassium and kidney function are continuing to get better. See your PCP in the next 1 week for follow-up of this problem also. . Keep the the community health nurse supervisor and cardiology appointments as you described. Plan of Treatment: As above. Care Goals: Improvement in potassium and kidney function, and stabilization are the goals. Assessment: The patient and understand and are agreeable with the plan. No Smoking: If you smoke, Please STOP! Call for help. Follow-up with: Chepe Milton MD [Primary Care Provider] -
--- NOTE | 2019-09-30 18:58 | DISCHARGE SUMMARY ---
Discharge Summary Admit Date: 09/29/19 Discharge Date: 09/30/19 Discharging Provider: Dr Jessica Ansari Primary Care Provider: Dr Chepe Milton Code Status: Attempt Resuscitation Condition at Discharge: Fair Discharge Disposition: 01 Home, Self Care - HPI History of Present Illness: From the admission H&P of Dr Chong [place]: This is a 79-year-old female with a past medical history significant for rheumatoid arthritis, hypertension, bilateral adrenalectomies on hydrocortisone who presents today after having routine lab work at her teletypesetter operator which re vealed an elevated potassium. She reports feeling well overall and does not have any acute complaints. She reports being in her usual state of health and she saw her teletypesetter operator today in [place] for routine visit and routine blood work and was found to have an elevated potassium of 6. She states she did have an elevated potassium reading about 12 to 13 years ago when she was living in [place] but that she was not hospitalized for it. She reports feeling thirsty these past few days and has been trying to drink water but she feels she can always drink a little more. She reports no chest pain, dyspnea, fevers, chills. She states rheumatoid arthritis has been controlled on Xeljanz. She also takes hydrocortisone 15 mg in the morning and 5 mg in the evening after she had bilateral adrenalectomies with the most recent adrenalectomy being in Feb 2019, for a suspected malignancy. In the emergency department, she was found to have a potassium of 6.5. Her EKG shows sinus rhythm with a left bundle branch block. There is no prior EKG to compare to but prior echocardiogram performed February 2019 was obtained for left bundle branch block so LBBB is not a new finding for her. She was given 8 units of IV insulin, dextrose, calcium gluconate, and albuterol 10 mg in the emergency department. Hospitalist Team was consulted for placing her in Oobservation for further management of the hyperkalemia. I did discuss goals of care with the patient she would like to be a full code. - HOSPITAL COURSE Hospital Course: (1) Hyperkalemia She presented with a potassium of 6.5 without any new EKG changes. The high potassium was likely caused by her adrenal insufficiency, and being on an MARISOL- inhibitor, as well as a component of renal insufficiency, given her elevated creatinine. She was given insulin and dextrose in the emergency department. We stopped her Benazepril and followed her labs q6h. She was put on IV saline. The Potassium was 6.5>> 4.4>> then joshua again to 5.5>> 5.7 and she needed Insulin and D50 again. The next potassium was 5.0. She was discharged with a lab slip order for a morning outpatient BMP to be done the next day, to check serum sodium, potassium and creat. (2) Adrenal insufficiency She has adrenal insufficiency due to bilateral adrenalectomies and is on chronic Hydrocortisone therapy. She had an a.m. cortisol done which was very low at 2.0. Her Hydrocortisone dose was increased from 15 mg to 20 mg in the a.m., and from 5 mg to 7.5 mg in the evening, and at discharged she was told to continue this higher dose. (3) Acute kidney injury Creatinine was elevated at 1.5 on admission and prior labs show a baseline of approximately 1.0. She was hydrated with IV saline and creat was followed: 1.5>> 1.4>> 1.3 at discharge. We stopped her Benazepril and at discharge she was instructed to stop using it, since it added to potassium retention. (4) Hyponatremia Suspected hypovolemic hyponatremia given she appeared slightly dehydrated on exam. She got IV saline and a recheck of her sodium was 131>> 134>> 133>> 131>> 133 at discharge. (5) Rheumatoid arthritis Stable. She was advised to continue her home medications. (6) Hypertension Her blood pressure was stable with systolics in the 130s, even off Benazapril. If additional BP med is needed, Amlodipine is a better choice. - ALLERGIES Allergies/Adverse Reactions: Allergies Allergy/AdvReac Type Severity Reaction Status Date / Time No Known Drug Allergies Allergy Verified 09/29/19 18:04 - MEDICATIONS Home Medications: Ambulatory Orders Medication Instructions Recorded Confirmed Hydrocortisone [Cortef] 7.5 mg PO QPM #0 tablet 09/30/19 Hydrocortisone [Cortef] 20 mg PO DAILYWM #0 tablet 09/30/19 - PHYSICAL EXAM AT DISCHARGE General Appearance: positive: No acute distress, Alert Eyes Bilateral: positive: Normal inspection, EOMI, Other (Dark rings under both eyes) Neck: positive: Nml inspection, No JVD Respiratory: positive: No respiratory distress Cardiovascular: positive: Regular rate & rhythm Abdomen: positive: No distention Skin: positive: Color nml Extremities: positive: Non-tender, No pedal edema Neurologic/Psychiatric: positive: Oriented x3, Other ([place]) - LABS Result Diagrams: 09/29/19 18:38 09/30/19 17:15 - DIAGNOSTIC IMAGING Diagnostic Imaging Results: Final report reviewed - FOLLOW UP Follow Up: See PCP in 5-10 days for hospital follow-up. See Chlorine Plant Operator and Inpatient Care Manager Rn in previously scheduled follow-ups. - TIME SPENT Time Spent in Discharge (Minutes): 45
--- NOTE | 2019-09-30 19:07 | DISCHARGE SUMMARY ---
Discharge Summary Discharge Date: 09/30/19 Primary Care Provider: Dr Lincoln Milton Code Status: Attempt Resuscitation Condition at Discharge: Fair Discharge Disposition: 01 Home, Self Care - ALLERGIES Allergies/Adverse Reactions: Allergies Allergy/AdvReac Type Severity Reaction Status Date / Time No Known Drug Allergies Allergy Verified 09/29/19 18:04 - MEDICATIONS Home Medications: Ambulatory Orders Medication Instructions Recorded Confirmed Hydrocortisone [Cortef] 7.5 mg PO QPM #0 tablet 09/30/19 Hydrocortisone [Cortef] 20 mg PO DAILYWM #0 tablet 09/30/19 - LABS Result Diagrams: 09/29/19 18:38 09/30/19 17:15
[2019-09-30 19:26] VITALS: BP 178/81
[2019-10-01] MEDS ORDERED: HYDROCORTISONE 10 MG TABLET PO SCH (08:00)
== END 2019-09-30 19:27 | disposition home or self-care (01) ==
LOC: ED 18:01 → MS2 20:15
PROVIDERS: ADMIT Internal Medicine; ATTEND Internal Medicine
DX: E87.5 Hyperkalemia (principal); M06.9 Rheumatoid arthritis, unspecified; I10 Essential (primary) hypertension; E89.6 Postprocedural adrenocortical (-medullary) hypofunction; Z79.51 Long term (current) use of inhaled steroids; Z79.899 Other long term (current) drug therapy; N17.9 Acute kidney failure, unspecified; E87.1 Hypo-osmolality and hyponatremia
CPT/HCPCS: 36415; 80048; 81001; 82533; 84132; 84295; 85025; 87086; 93005; 94640; 96361; 96365; 96375; 99283; 99285; A9270; G0378; J1815; J7040; 81003

== ENCOUNTER 2019-10-01 09:25 | Outpatient (CLI) | payer MEDICARE ==
[2019-10-01 09:43] LABS: CALCIUM 9.2 mg/dL (8.5-10.3); CREATININE 1.1 mg/dL (0.4-1.0)
== END 2019-10-01 09:26 | disposition home or self-care (01) ==
LOC: LAB 09:25
PROVIDERS: ATTEND Internal Medicine
DX: I10 Essential (primary) hypertension (principal)
CPT/HCPCS: 36415; 80048

== ENCOUNTER 2019-10-15 13:47 | Outpatient (CLI) | payer MEDICARE ==
[2019-10-15 14:08] LABS: BASOPHILS % (AUTO) 0.3 %; EOSINOPHILS # (AUTO) 0.1 10^3/uL (0.0-0.7); EOSINOPHILS % (AUTO) 0.3 %; HGB - HEMOGLOBIN 10.5 g/dL (12.0-16.0); LYMPHOCYTES # (AUTO) 2.8 10^3/uL (1.5-3.5); LYMPHOCYTES % (AUTO) 19.1 %; MEAN CORPUSCULAR HEMOGLOBIN 29.7 pg (27.0-31.0); MEAN CORPUSCULAR HGB CONC 31.3 g/dL (32.0-36.0); MEAN CORPUSCULAR VOLUME 94.9 fL (81.0-99.0); MEAN PLATELET VOLUME 9.1 fL (7.9-10.8); MONOCYTES # (AUTO) 0.9 10^3/uL (0.0-1.0); MONOCYTES % (AUTO) 5.9 %; NEUTROPHILS # (AUTO) 10.7 10^3/uL (1.5-6.6); NEUTROPHILS % (AUTO) 73.6 %; PLT - PLATELET COUNT 321 10^3/uL (130-450); RED BLOOD COUNT 3.53 10^6/uL (4.20-5.40); RED CELL DISTRIBUTION WIDTH 16.9 % (12.0-15.0); WHITE BLOOD COUNT 14.5 x10^3/uL (4.8-10.8)
[2019-10-15] MEDS ORDERED: IOVERSOL 320 100 ML VIAL IVP ONE ×2 (14:12→14:43)
[2019-10-15 14:20] LABS: ALBUMIN 3.8 g/dL (3.2-5.5); ALBUMIN/GLOBULIN RATIO 1.1 (1.0-2.2); BILIRUBIN,TOTAL 0.3 mg/dL (0.2-1.0); CALCIUM 9.4 mg/dL (8.5-10.3); CREATININE 1.4 mg/dL (0.4-1.0); TOTAL PROTEIN 7.2 g/dL (6.7-8.2)
--- NOTE | 2019-10-15 16:24 | CT Report ---
PROCEDURE: Abdomen/Pelvis W INDICATIONS: ADRENAL MASS CONTRAST: IV CONTRAST: Optiray 320 ml: 100 PO CONTRAST: *NO PO CONTRAST TECHNIQUE: After the administration of oral and intravenous contrast, 5 mm thick sections acquired from the diap hragms to the symphysis. 5 mm thick coronal and sagittal reformats were acquired. For radiation dos e reduction, the following was used: automated exposure control, adjustment of mA and/or kV accordin g to patient size. COMPARISON: CT examination dated 04.20.19 FINDINGS: Image quality: Excellent. ABDOMEN: Lung bases: Lung bases are clear. Heart size is normal. Solid organs: Liver and spleen are normal in size and enhancement. Gallbladder Biliary system is non dilated. Pancreas enhances normally. Right adrenalectomy has been performed. No evidence of recurrent right adrenal fossa mass. Left adrenal is not well seen, as before. No left adrenal nodules . Kidneys demonstrate normal size. There is no right hydronephrosis. There is moderate left hydronep hrosis, as before. Bilateral renal cysts are present, as before. 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 Peritoneum and bowel: Bowel loops demonstrate normal wall thickness and caliber. No free fluid or a ir. Nodes and vessels: No retroperitoneal or mesenteric adenopathy by size criteria. Aorta and inferior vena cava are normal in size. Miscellaneous: No ventral hernias. PELVIS: Genitourinary: Bladder wall thickness is normal. Miscellaneous: No inguinal hernias or adenopathy. Bones: No suspicious bony lesions. There is a new mild wedging of L2 which demonstrates ill-defined sclerosis and lucency within its superior endplate. No acute vertebral body compression fractures. IMPRESSION: 1. Postsurgical sequelae. No evidence of tumor recurrence. 2. No change in moderate left hydronephrosis. 3. New mild subacute L2 compression fracture. This could be further assessed lumbar spine MRI. If cli nically indicated, this would be amenable to percutaneous vertebral augmentation, which could be perf ormed by interventional radiology at [facility]. Interventional radiology consultation re commended. Reviewed by: Shaw Prince MD on 10/15/2019 4:22 PM PDT Approved by: Shaw Prince MD on 10/15/2019 4:22 PM PDT Station ID: [id number]
== END 2019-10-15 13:48 | disposition home or self-care (01) ==
LOC: DI 13:47
PROVIDERS: ATTEND Internal Medicine Endocrinology, Diabetes & Metabolism
DX: N13.30 Unspecified hydronephrosis (principal); N28.1 Cyst of kidney, acquired; M48.56XA Collapsed vertebra, not elsewhere classified, lumbar region, initial encounter for fracture; E89.6 Postprocedural adrenocortical (-medullary) hypofunction
CPT/HCPCS: 36415; 74177; 80053; 85025; Q9967

== ENCOUNTER 2019-12-09 10:23 | Outpatient (CLI) | payer MEDICARE | END 2019-12-09 10:24 | disposition home or self-care (01) | LOC: DI 10:23 | PROVIDERS: ATTEND Family Medicine | DX: R07.9 Chest pain, unspecified (principal); R60.0 Localized edema; I34.0 Nonrheumatic mitral (valve) insufficiency; I27.20 Pulmonary hypertension, unspecified | CPT/HCPCS: 93306 ==

== ENCOUNTER 2020-01-25 08:00 | Outpatient (CLI) | payer MEDICARE ==
[2020-01-25 17:59] LABS: BASOPHILS # (AUTO) 0.1 10^3/uL (0.0-0.1); BASOPHILS % (AUTO) 0.6 %; EOSINOPHILS % (AUTO) 0.3 %; HGB - HEMOGLOBIN 11.2 g/dL (12.0-16.0); LYMPHOCYTES # (AUTO) 2.5 10^3/uL (1.5-3.5); LYMPHOCYTES % (AUTO) 24.4 %; MEAN CORPUSCULAR HEMOGLOBIN 23.9 pg (27.0-31.0); MEAN CORPUSCULAR HGB CONC 29.2 g/dL (32.0-36.0); MEAN CORPUSCULAR VOLUME 82.1 fL (81.0-99.0); MEAN PLATELET VOLUME 9.9 fL (7.9-10.8); MONOCYTES # (AUTO) 0.8 10^3/uL (0.0-1.0); MONOCYTES % (AUTO) 7.3 %; NEUTROPHILS % (AUTO) 66.8 %; PLT - PLATELET COUNT 345 10^3/uL (130-450); RED BLOOD COUNT 4.68 10^6/uL (4.20-5.40); RED CELL DISTRIBUTION WIDTH 17.4 % (12.0-15.0); WHITE BLOOD COUNT 10.4 x10^3/uL (4.8-10.8)
[2020-01-25 18:18] LABS: BILIRUBIN,TOTAL 0.6 mg/dL (0.2-1.0); CALCIUM 9.6 mg/dL (8.5-10.3); CREATININE 1.8 mg/dL (0.4-1.0); TOTAL PROTEIN 8.1 g/dL (6.7-8.2)
[2020-01-25 18:30] LABS: THYROID STIMULATING HORMONE 2.05 uIU/mL (0.34-5.60)
[2020-01-25 18:41] LABS: FOLATE 14.86 ng/mL (5.90 - >24.8)
== END 2020-01-25 23:59 | disposition home or self-care (01) ==
LOC: LAB 08:00
PROVIDERS: ATTEND Physician Assistant
DX: I12.9 Hypertensive chronic kidney disease with stage 1 through stage 4 chronic kidney disease, or unspecified chronic kidney disease (principal); N18.9 Chronic kidney disease, unspecified; R53.83 Other fatigue; R55 Syncope and collapse; R06.00 Dyspnea, unspecified
CPT/HCPCS: 36415; 80053; 82607; 82746; 84443; 85025

== ENCOUNTER 2020-01-29 13:10 | Outpatient (CLI) | payer MEDICARE | END 2020-01-29 13:11 | disposition critical access hospital (66) | LOC: EMS 13:10 | PROVIDERS: ATTEND Surgery | DX: R53.1 Weakness (principal) | CPT/HCPCS: A0425; A0427 ==

== ENCOUNTER 2020-01-29 13:21 | Observation (INO) | payer MEDICARE ==
--- NOTE | 2020-01-29 13:47 | ED Physician Documentation ---
History of Present Illness - Stated complaint Stated Complaint: WEAKNESS - Chief complaint Chief Complaint: General - History obtained from History obtained from: Patient, EMS - Additonal information Additional information: This is a angela but very hard of hearing 79-year-old woman who presents by ambulance for headache and trouble breathing. She says she has been sick for about a week. She saw her doctor yesterday. The headache is on the right side and occipital. It runs down towards the neck. There is no neck stiffness. The shortness of breath has also been for about a week. Worse with exertion. No associated cough. Her physician ordered a chest x-ray and pulmonary function testing, she was not able to get it done as an outpatient so her called 911 to bring her to the hospital. She declines pain medication for her headache at this juncture. Her primary care physician did prescribe something for the headache but she has not had a chance to fill it. Review of Systems Ten Systems: 10 systems reviewed and negative Constitutional: reports: Reviewed and negative Eyes: reports: Reviewed and negative Ears: reports: Reviewed and negative Nose: reports: Reviewed and negative Throat: reports: Reviewed and negative PD PAST MEDICAL HISTORY - Past Medical History Cardiovascular: Hypertension, Murmur Respiratory: None Neuro: None Endocrine/Autoimmune: Other GI: GERD MATERIAL YARD CLERK: None : None HEENT: None Psych: None Musculoskeletal: Rheumatoid arthritis Derm: None - Present Medications Home Medications: Ambulatory Orders Medication Instructions Recorded Confirmed Calcium Citrate 600 mg PO DAILY 11/17/19 11/17/19 Fludrocortisone [Florinef] 0.1 mg PO DAILY 11/17/19 11/17/19 Furosemide [Lasix] 40 mg PO Q48H 11/17/19 11/17/19 Hydrocortisone [Cortef] 10 mg PO QPM 11/17/19 11/17/19 Hydrocortisone [Cortef] 20 mg PO DAILY 11/17/19 11/17/19 Meclizine HCl 25 mg PO PRN PRN 11/17/19 11/17/19 Omeprazole [PriLOSEC] 20 mg PO DAILY 11/17/19 11/17/19 Tofacitinib Citrate [Xeljanz Xr] 11 mg PO DAILY 11/17/19 11/17/19 amLODIPine [Norvasc] 10 mg PO DAILY 11/17/19 11/17/19 - Allergies Allergies/Adverse Reactions: Allergies Allergy/AdvReac Type Severity Reaction Status Date / Time No Known Drug Allergies Allergy Verified 01/29/20 13:41 - Social History Does the pt smoke?: No Smoking Status: Never smoker Does the pt drink ETOH?: No Does the pt have substance abuse?: No - Family History Family history: reports: Non contributory - Immunizations Immunizations are current?: Yes PD ED PE NORMAL - Vitals Vital signs reviewed: Yes - General General: Alert and oriented X 3, No acute distress - HEENT HEENT: PERRL, Ears normal - Neck Neck: Supple, no meningeal sign, No bony TTP - Cardiac Cardiac: RRR, No murmur - Respiratory Respiratory: No respiratory distress, Clear bilaterally - Abdomen Abdomen: Non tender - Derm Derm: Normal color, Warm and dry, No rash - Neuro Neuro: Alert and oriented X 3, No motor deficit, No sensory deficit, Normal speech, Other ([place]) - Psych Psych: Normal mood, Normal affect Results - Vitals Vitals: Vital Signs - 24 hr 01/29/20 01/29/20 13:25 14:59 Temperature 36.7 C 36.5 C Heart Rate 73 72 Respiratory 17 10 L Rate Blood Pressure 152/89 H 106/66 O2 Saturation 97 100 Oxygen O2 Source Room air - EKG (time done) 1351 Rate: Rate (enter#) (71) Rhythm: NSR, LAE Intervals: LBBB - Labs Labs: Laboratory Tests 01/29/20 01/29/20 01/29/20 14:20 14:20 14:20 WBC 9.3 RBC 4.99 Hgb 12.4 Hct 40.4 MCV 81.0 MCH 24.8 L MCHC 30.7 L RDW 17.6 H Plt Count 284 MPV 9.0 Neut # (Auto) 6.4 Lymph # (Auto) 2.3 Pickett # (Auto) 0.6 Eos # (Auto) 0.0 Baso # (Auto) 0.0 Absolute Nucleated RBC 0.00 Nucleated RBC % 0.0 PT 12.6 INR 1.1 Sodium 126 L Potassium 4.5 Chloride 84 L Carbon Dioxide 28 Anion Gap 14.0 H BUN 49 H Creatinine 1.8 H Estimated GFR (MDRD) 27 L Glucose 122 H Calcium 9.6 Total Bilirubin 0.7 AST 37 ALT 26 Alkaline Phosphatase 74 Troponin I High Sens B-Natriuretic Peptide Total Protein 8.1 Albumin 4.0 Globulin 4.1 Albumin/Globulin Ratio 1.0 Lipase 31 01/29/20 01/29/20 14:20 14:20 WBC RBC Hgb Hct MCV MCH MCHC RDW Plt Count MPV Neut # (Auto) Lymph # (Auto) [place]ett # (Auto) Eos # (Auto) Baso # (Auto) Absolute Nucleated RBC Nucleated RBC % PT INR Sodium Potassium Chloride Carbon Dioxide Anion Gap BUN Creatinine Estimated GFR (MDRD) Glucose Calcium Total Bilirubin AST ALT Alkaline Phosphatase Troponin I High Sens 13.6 B-Natriuretic Peptide 40 Total Protein Albumin Globulin Albumin/Globulin Ratio Lipase - Rads (name of study) 1v CHEST XR Radiology: EMP read contemporaneously (NAD) PD MEDICAL DECISION MAKING - ED course ED course: 79-year-old woman presents by ambulance for weakness and shortness of breath. Her exam and vital signs are relatively unremarkable. Work-up here demonstrates hyponatremia, worse than her usual, looks like her baseline sodium is right around 131 and today it is 126. Notable etiologies found. Renal function is at her baseline. No symptoms to suggest UTI. She is too weak to stand up unassisted and agreeable to 1 night of observation for improvement of her electrolyte derangements. Departure - Departure Disposition: ED Place in Observation Clinical Impression: Hyponatremia, Adrenal insufficiency, Orthostatic hypotension Condition: Stable
--- NOTE | 2020-01-29 14:12 | XRAY Report ---
PROCEDURE: Chest 1 View X-Ray INDICATIONS: Dyspnea TECHNIQUE: One view of the chest was acquired. COMPARISON: 11/17/2019 FINDINGS: Surgical changes and devices: None. Lungs and pleura: No pleural effusions or pneumothorax. Lungs are clear. Mediastinum: Mediastinal contours appear normal. Heart size is normal. Bones and chest wall: No suspicious bony lesions. Overlying soft tissues appear unremarkable. IMPRESSION: No acute finding. Reviewed by: Jessee Lemus MD on 01/29/2020 2:11 PM PDT Approved by: Jessee Lemus MD on 01/29/2020 2:11 PM PDT Station ID: [id number]
[2020-01-29 14:29] LABS: BASOPHILS % (AUTO) 0.3 %; EOSINOPHILS % (AUTO) 0.2 %; HGB - HEMOGLOBIN 12.4 g/dL (12.0-16.0); LYMPHOCYTES # (AUTO) 2.3 10^3/uL (1.5-3.5); LYMPHOCYTES % (AUTO) 24.3 %; MEAN CORPUSCULAR HEMOGLOBIN 24.8 pg (27.0-31.0); MEAN CORPUSCULAR HGB CONC 30.7 g/dL (32.0-36.0); MONOCYTES # (AUTO) 0.6 10^3/uL (0.0-1.0); MONOCYTES % (AUTO) 6.6 %; NEUTROPHILS # (AUTO) 6.4 10^3/uL (1.5-6.6); NEUTROPHILS % (AUTO) 68.2 %; PLT - PLATELET COUNT 284 10^3/uL (130-450); RED BLOOD COUNT 4.99 10^6/uL (4.20-5.40); RED CELL DISTRIBUTION WIDTH 17.6 % (12.0-15.0); WHITE BLOOD COUNT 9.3 x10^3/uL (4.8-10.8)
[2020-01-29 14:37] LABS: INR 1.1 (0.8-1.2); PT - PROTHROMBIN TIME 12.6 secs (9.9-12.6)
[2020-01-29 14:45] LABS: BILIRUBIN,TOTAL 0.7 mg/dL (0.2-1.0); CALCIUM 9.6 mg/dL (8.5-10.3); CREATININE 1.8 mg/dL (0.4-1.0); TOTAL PROTEIN 8.1 g/dL (6.7-8.2)
[2020-01-29] MEDS ORDERED: SODIUM CHLORIDE 0.9% 1,000 ML IV STA (15:06)
[2020-01-29] MEDS ORDERED: ACETAMINOPHEN 325 MG TABLET PO PRN (15:19)
[2020-01-29] MEDS ORDERED: ONDANSETRON 4 MG/2 ML VIAL IVP PRN (15:19)
[2020-01-29] MEDS ORDERED: ONDANSETRON ODT 4 MG TABLET TL PRN (15:19)
[2020-01-29] MEDS ORDERED: SODIUM CHLORIDE FLUSH 0.9% 10 ML SYRINGE IVP PRN (15:19)
[2020-01-29] MEDS ORDERED: oxyCODONE 5 MG TABLET PO PRN (15:19)
[2020-01-29] MEDS ORDERED: HYDROCORTISONE SUCCINATE 100 MG/2 ML VIAL IVP SCH (16:00)
[2020-01-29] MEDS: SODIUM CHLORIDE 0.9% 1,000 ML IV SCH (16:46)
[2020-01-29] MEDS: SODIUM CHLORIDE FLUSH 0.9% 10 ML SYRINGE IVP SCH (17:05)
--- NOTE | 2020-01-29 18:01 | HISTORY & PHYSICAL EXAMINATION ---
Chief Complaint - Chief Complaint Chief Complaint: Dizziness <Sara Chen - Last Filed: 01/29/20 18:56> History of Present Illness - Admitted From Admitted From:: ED/Home - History Obtained From History obtained from: Patient, Exam Limitations: None <Sara Chen - Last Filed: 01/29/20 18:56> - History of Present Illness HPI Comment/Other: Mrs. Holden is a pleasant 79 year-old female with a history of adrenalectomy, pulmonary hypertension, mild diastolic heart failure, and hearing loss who presents to the emergency room via EMS for a syncopal episode that happened at home today. Patient was in the bathroom and fell upon standing up. Luckily, her was in the bathroom with her and caught her when she was retirement down. She reports feeling nauseous and dizzy before passing out. She regained consciousness almost immediately after the fall. She felt too weak to stand up so her Taon called EMS. Her lab is significant of a sodium level of 126 and GFR of 27 from 54 two months ago. Patient is alert and oriented x3 and able to answer all questions appropriately. She is positive for orthostatic hypotension (SBP 150s lying flat and 100s standing). She is very hard of hearing and is a good historian in telling me what happened to her, but has difficulty telling me her current medication and medical history. She tells me she has been feeling short of breath and extremely fatigued the last few weeks. According to patient and her , she fell in the bathroom 10 days ago, which resulted in large bruising of her left forearm and skin tear on her right elbow. The shortness of breath is hindering her from walking around her home and doing her ADLs. Because of her weakness, she has been getting around with a wheelchair with the help of her . In addition, she complains of intermittent headaches that has been ongoing for the past month. She was seen by her PCP Dr. Milton yesterday and was prescribed a medication for her headache. She has yet to fill the prescription and does not know the name of the drug. She has an appointment with her architectural modeler and a PFT next week. She denies any fever, chills, weight loss. She's not dyspenic at rest, only when she walks. No chest pain, palpitations, orthopnea, or PND. Denies nausea, vomiting, abdominal pain, dysuria or urinary frequency, or urgency. Her legs feel weak when standing or trying to walk. , (Sara Chen) History - Past Medical History Cardiovascular: reports: Hypertension, Murmur Respiratory: reports: None Neuro: reports: None, Headaches (intermittent) Endocrine/Autoimmune: reports: Other (adrenalectomy, takes hydrocortisone PO at home.) GI: reports: GERD FINISHING TUNNEL OPERATOR: reports: None : reports: None HEENT: reports: None, Chronic hearing loss (Has cochlear implant on her right ear and hearing aid on her left ear.) Psych: reports: None Musculoskeletal: reports: Rheumatoid arthritis Derm: reports: None MRSA Hx?: No - Past Surgical History General: reports: Appendectomy /FINISHING TUNNEL OPERATOR: reports: section, Hysterectomy HEENT: reports: Cochlear implant (right ear) - Family & Social History Family History: Mother: , CAD, Father: , CAD Family History Comment/Other: She reports that 2 of her brothers had open heart surgery and both of them had cancers although she is not sure what kind of cancer. She states her parents also had cardiac history although she is not sure what it was. Social History Notes: She lives at home with her family. She is a non-smoker. She will have alcoholic beverage 1-2 times a year when visiting her daughters live in [place]. Denies any drug use. - Substance History Use: Uses substance without health or social issues: NONE - POLST Patient has POLST: No POLST Status: Full Code <Sara Chen - Last Filed: 01/29/20 18:56> Meds/Allgy <Sara Chen - Last Filed: 01/29/20 18:56> <Luna Pimentel - Last Filed: 01/30/20 16:05> - Home Medications Home Medications: Ambulatory Orders Medication Instructions Recorded Confirmed Calcium Citrate 600 mg PO DAILY 11/17/19 01/30/20 Fludrocortisone [Florinef] 0.1 mg PO DAILY 11/17/19 01/30/20 Furosemide [Lasix] 40 mg PO Q48H 11/17/19 01/30/20 Hydrocortisone [Cortef] 10 mg PO QPM 11/17/19 01/30/20 Hydrocortisone [Cortef] 20 mg PO DAILY 11/17/19 01/30/20 Meclizine HCl 25 mg PO PRN PRN 11/17/19 01/30/20 Omeprazole [PriLOSEC] 20 mg PO DAILY 11/17/19 01/30/20 Tofacitinib Citrate [Xeljanz Xr] 11 mg PO DAILY 11/17/19 01/30/20 amLODIPine [Norvasc] 10 mg PO DAILY 11/17/19 01/30/20 - Allergies Allergies/Adverse Reactions: Allergies Allergy/AdvReac Type Severity Reaction Status Date / Time No Known Drug Allergies Allergy Verified 01/29/20 13:41 Review of Systems - Constitutional Constitutional: reports: Fatigue, Weakness. denies: Fever, Chills, Night sweats, Weight gain, Weight loss - Eyes Eyes: denies: Blurred vision, Vision loss, Dipolpia - Ears, Nose & Throat Ears, Nose & Throat: reports: Hearing loss, Hearing aids. denies: Ear pain, Tinnitus, Nasal discharge, Nasal congestion, Sore throat, Hoarseness - Cardiovascular Cariovascular: reports: Edema, Lightheadedness, Syncope, Exertional dyspnea, Decr. exercise tolerance. denies: Irregular heart rate, Palpitations, Chest pain, Orthopnea - Respiratory Respiratory: reports: SOB with exertion. denies: Cough, Sputum production, Wheezing, Hemoptysis, Orthopnea, SOB at rest, Pleuritic pain - Gastrointestinal Gastrointestinal: reports: Nausea. denies: Abdominal pain, Constipation, Diarrhea, Change in bowel habits, Black stools, Bloody stools, Vomiting, Coffee grounds emesis, Reflux/heartburn, Poor appetite - Genitourinary Genitourinary: denies: Dysuria, Frequency, Urgency, Hematuria, Incontinence - Musculoskeletal Musculoskeletal: reports: Joint pain. denies: Muscle pain, Back pain, Stiffness, Limited range of motion, Joint swelling - Integumentary Integumentary: reports: Other (bruising noted on left arm and skin tear near left elbow from fall 10 days ago.). denies: Rash, Pruritis, Lesions, Lumps - Neurological Neurological: reports: General weakness, Headache, Dizziness. denies: Numbness, Seizures - Psychiatric Psychiatric: denies: Depression, Anxiety, Suicidal - Endocrine Endocrine: denies: Polyuria, Polydypsia, Polyphagia, Intolerance to cold, Intolerance to heat - All Other Systems All Other Systems: reports: Reviewed and negative <Sara Chen - Last Filed: 01/29/20 18:56> <Sara Chen - Last Filed: 01/29/20 18:56> Prior Level of Functionality: She has been using a wheelchair to get around since the worsening of her SOB a few weeks ago. Before than, she was able to walk around independently without any assistive devices. (Sara Chen) Exam - Vital Signs Reviewed Vital Signs: Yes - Physical Exam General Appearance: positive: No acute distress, Alert, Other (pleasant, calm, hard of hearing but appropriate.) Eyes Bilateral: positive: Normal inspection, PERRL, EOMI, Conjunctivae nml, No scleral icterus. negative: No lid inflammation ENT: positive: No signs of dehydration. negative: Dry mucous membranes Neck: positive: Nml inspection, Thyroid nml, No JVD, Trachea midline. negative: Thyromegaly, Stiff neck, Tracheal deviation Respiratory: positive: Chest non-tender, No respiratory distress, Breath sounds nml. negative: Wheezes, Rales, Rhonchi Cardiovascular: positive: Regular rate & rhythm, Diastolic murmur. negative: No gallop, Irregularly irregular, Tachycardia, Bradycardia, JVD present, Gallop/S3, Gallop/S4 Peripheral Pulses: positive: 2+ Abdomen: positive: Non-tender, Nml bowel sounds, No distention. negative: No organomegaly, Guarding, Rebound, Mass Skin: positive: Color nml, No rash, Warm, Dry, Other (Bruising on her left forearm, skin tear on her left arm near elbow) Extremities: positive: Non-tender, Nml appearance, Pedal edema (+1 bilateral edema). negative: Calf tenderness, Joint swelling Neurologic/Psychiatric: positive: Oriented x3, Sensation nml, Weakness (4/5 strength bilateral UE and LE) <Sara Chen - Last Filed: 01/29/20 18:56> - Vital Signs Vital Signs: Vital Signs x48h Temp Pulse Pulse Resp BP BP Pulse Ox 01/29/20 17:22 36.2 C L 75 16 99 01/29/20 16:42 36.2 C L 82 16 143/69 H 100 01/29/20 15:40 72 22 139/76 H 100 01/29/20 14:59 36.5 C 72 10 L 106/66 100 01/29/20 13:25 36.7 C 73 17 152/89 H 97 Conclusion/Plan - Problem List (1) Hyponatremia Conclusion/Plan: Patient's most recent sodium level is 126. Hyponatremia due to adrenal in sufficiency was initially suspected, however her cortisol level came back 14.2, thus adrenal insufficiency was ruled out. Urine sodium level ordered. Results pending. It is unclear what is causing her hyponatremia, but likely due to renal failure as her GFR is 27 and creatinine is 1.8 compared to her last visit two months ago (GFR 54, creatinine 1.2). Will start normal saline maintenance fluid and recheck sodium level later tonight. (2) Orthostatic hypotension Conclusion/Plan: Patient was orthostatic and dizzy when standing up for BP measurement. Will give her NaCl maintenance fluid and repeat orthostatic tonight and tomorrow morning. (3) Adrenal insufficiency Conclusion/Plan: Continue home dose hydrocortisone. (4) CKD (chronic kidney disease) Conclusion/Plan: Patient is noted to have CKD stage 3. Will decrease furosemide dose by half. Avoid nephrotoxins. Continue to trend creatinine and GFR. Qualifiers: Chronic kidney disease stage: stage 3 (moderate) - Lab Results Lab results reviewed: Yes [facility]: 01/29/20 14:20 01/29/20 14:20 - Diagnostic Imaging Results Diagnostic Imaging Results: positive: Final report reviewed - EKG Results EKG Interpreted Independently: Yes EKG Comparison: Unchanged from prior EKG (Old LBBB) <Sara Chen - Last Filed: 01/29/20 18:56> - Lab Results [facility]: 01/30/20 05:00 01/30/20 05:00 <Luna Pimentel - Last Filed: 01/30/20 16:05> Core Measures - Anticipated LOS I expect patient to be DC'd or transferred within 96 hours.: Yes - DVT/VTE - Prophylaxis VTE/DVT Device ordered at admit?: Yes Not Ordered - Low Risk: Very low risk VTE/DVT Prophylaxis med ordered at admit?: No Not Ordered - Medical Reason: Not indicated - Stroke - Rehab Assessment Rehab services assessment to be ordered?: No Not Ordered - Medical Reason: Not indicated - AMI - Statin at Admit Aspirin Prescribed on Admit: No Not Ordered - Medical Reason: Not indicated <Sara Chen - Last Filed: 01/29/20 18:56>
[2020-01-29] MEDS ORDERED: HYDROCORTISONE 10 MG TABLET PO SCH (19:00)
[2020-01-30] MEDS: SODIUM CHLORIDE FLUSH 0.9% 10 ML SYRINGE IVP SCH ×2 (00:53→10:22)
[2020-01-30] MEDS: SODIUM CHLORIDE 0.9% 1,000 ML IV SCH (00:53)
[2020-01-30 05:20] LABS: BASOPHILS % (AUTO) 0.1 %; HGB - HEMOGLOBIN 10.5 g/dL (12.0-16.0); LYMPHOCYTES # (AUTO) 1.8 10^3/uL (1.5-3.5); LYMPHOCYTES % (AUTO) 21.4 %; MEAN CORPUSCULAR HEMOGLOBIN 24.8 pg (27.0-31.0); MEAN CORPUSCULAR HGB CONC 30.7 g/dL (32.0-36.0); MEAN CORPUSCULAR VOLUME 80.9 fL (81.0-99.0); MEAN PLATELET VOLUME 9.6 fL (7.9-10.8); MONOCYTES # (AUTO) 0.6 10^3/uL (0.0-1.0); MONOCYTES % (AUTO) 6.6 %; NEUTROPHILS % (AUTO) 71.5 %; PLT - PLATELET COUNT 260 10^3/uL (130-450); RED BLOOD COUNT 4.23 10^6/uL (4.20-5.40); RED CELL DISTRIBUTION WIDTH 17.4 % (12.0-15.0); WHITE BLOOD COUNT 8.3 x10^3/uL (4.8-10.8)
[2020-01-30 05:30] LABS: CALCIUM 8.9 mg/dL (8.5-10.3); CREATININE 1.6 mg/dL (0.4-1.0); MAGNESIUM 2.9 mg/dL (1.7-2.8); PHOSPHORUS 3.4 mg/dL (2.5-4.6)
[2020-01-30] MEDS ORDERED: SODIUM CHLORIDE 0.9% 500 ML IV ONE (07:02)
[2020-01-30] MEDS ORDERED: HYDROCORTISONE 10 MG TABLET PO SCH (08:00)
[2020-01-30] MEDS ORDERED: ENOXAPARIN 30 MG/0.3 ML SYRINGE SUBQ SCH (09:00)
--- NOTE | 2020-01-30 10:13 | PHARMACY PROGRESS NOTE ---
- Best Possible Medication History Admit Date and Time: 01/29/20 1519 Processed by: Pharmacy Medication History completed: Yes Patient Interview: Completed Secondary Source(s): Previous admit records As the person ultimately responsible for medication therapy, providers are able to order a medication from an existing home medication list in [facility] via the "Reconcile Routine" prior to Confirmation of that medication by technical support consultant. Such practice is discouraged except when the physician, in their clinical judgment, deems that a medical need exists for a medication without regard to previous use.
[2020-01-30 11:10] VITALS: BP 117/62
--- NOTE | 2020-01-30 11:52 | Discharge Plan ---
Discharge Plan Problem Reviewed?: Yes Disposition: Home, Self Care Condition: Fair Diet: Regular Activity Restrictions: Activity as Tolerated Shower Restrictions: No Driving Restrictions: Yes (no driving) Assistance Devices: Walker, Cane Health Concerns: You came to the hospital because you were having severe fatigue, and shortness of breath for the last 2 weeks. You are only able to walk 7 feet before you had to stop and sit because he was so short of breath. You had a recent echocardiogram with your certified endoscopy technician and it shows that you have severe elevated blood pressure in the arteries of your lungs. And one of your valves is leaking backwards moderately. When we saw you in the emergency room we felt that you were dehydrated with a low salt in your bloodstream. Every time we try to stand you would get dizzy and lightheaded. We did check your cortisol levels to make sure you are on enough Cortef and you were. Otherwise your blood pressure was normal. There is no infection. Your chest x-ray was negative. After spending the night in the hospital, you responded to simple IV hydration with salt water in your veins. We did not adjust any of your other medications. You still continue to drop your blood pressure when you stand. As such be very careful when you are at home and you have to get up. Make sure you sit, pause, make sure you are not dizzy, then stand and walk a few steps. You felt like you were back to normal and no longer short of breath and could walk the normal amount you wanted to. Plan of Treatment: 1. IV hydration. 2. No change in your Cortef supplementation Care Goals: To remain at home for as long as possible, be is independent for as long as possible, and we are asking you to be diligent about taking your medicines every day Assessment: Patient promises to follow through. But there appears to be moderate cognitive deficit. We will also discuss with when he comes. No Smoking: If you smoke, Please STOP! Call for help. Follow-up with: Chepe Milton MD [Primary Care Provider] -
--- NOTE | 2020-01-30 16:11 | DISCHARGE SUMMARY ---
"Discharge Summary Admit Date: 01/29/20 Discharge Date: 01/30/20 Discharging Provider: Luna Pimentel MD Primary Care Provider: Chepe Milton MD Code Status: Attempt Resuscitation Condition at Discharge: Fair Discharge Disposition: 01 Home, Self Care - DIAGNOSES Discharge Diagnoses with Status of Each Condition: 1. Hyponatremia 2. Orthostatic hypotension 3. Adrenal insufficiency 4. Pulmonary hypertension 5. Skin tear right upper extremity, present on admission 6. Chronic kidney disease stage III 7. Moderate cognitive deficit - HPI History of Present Illness: Mrs. Holden is a pleasant 79 year-old female with a history of adrenalectomy, pulmonary hypertension, mild diastolic heart failure, and hearing loss who presents to the emergency room via EMS for a syncopal episode that happened at home today. Patient was in the bathroom and fell upon standing up. Luckily, her was in the bathroom with her and caught her when she was correction down. She reports feeling nauseous and dizzy before passing out. She regained consciousness almost immediately after the fall. She felt too weak to stand up so her Tano called EMS. Her lab is significant of a sodium level of 126 and GFR of 27 from 54 two months ago. Patient is alert and oriented x3 and able to answer all questions appropriately. She is positive for orthostatic hypotension (SBP 150s lying flat and 100s standing). She is very hard of hearing and is a good historian in telling me what happened to her, but has difficulty telling me her current medication and medical history. She tells me she has been feeling short of breath and extremely fatigued the last few weeks. According to patient and her , she fell in the bathroom 10 days ago, which resulted in large bruising of her left forearm and skin tear on her right elbow. The shortness of breath is hindering her from walking around her home and doing her ADLs. Because of her weakness, she has been getting around with a wheelchair with the help of her . In addition, she complains of intermittent headaches that has been ongoing for the past month. She was seen by her PCP Dr. Milton yesterday and was prescribed a medication for her headache. She has yet to fill the prescription and does not know the name of the drug. She has an appointment with her medical record librarians teacher and a PFT next week. She denies any fever, chills, weight loss. She's not dyspenic at rest, only when she walks. No chest pain, palpitations, orthopnea, or PND. Denies nausea, vomiting, abdominal pain, dysuria or urinary frequency, or urgency. Her legs feel weak when standing or trying to walk. , (Sara Chen) History - Past Medical History Cardiovascular: reports: Hypertension, Murmur Respiratory: reports: None Neuro: reports: None, Headaches (intermittent) Endocrine/Autoimmune: reports: Other (adrenalectomy, takes hydrocortisone PO at home.) GI: reports: GERD DISCHARGING MACHINE OPERATOR: reports: None : reports: None HEENT: reports: None, Chronic hearing loss (Has cochlear implant on her right ear and hearing aid on her left ear.) Psych: reports: None Musculoskeletal: reports: Rheumatoid arthritis Derm: reports: None MRSA Hx?: No - Past Surgical History General: reports: Appendectomy /DISCHARGING MACHINE OPERATOR: reports: section, Hysterectomy HEENT: reports: Cochlear implant (right ear) - CONSULTS | PROCEDURES Procedures: 1. Chest x-ray with no acute findings. 2. Cortisol level 14.9. 3. Spot urine sodium 40 mmol/L. - HOSPITAL COURSE Hospital Course: We initially thought that this patient had adrenal insufficiency in the face of either noncompliance with her steroid use or not enough steroids. However cortisol level was adequate. And we stopped after 1 dose of IV Solu-Cortef. We gave her, overall, 3 L of normal saline. She felt back to baseline. She says that she was no longer short of breath, no longer dizzy and felt fine. However our orthostatics showed her to still be orthostatic when she stood up. We advised her on the safety techniques she could use when she gets up out of bed. This patient has moderate cognitive deficits. also seems to have moderate cognitive deficits. I am asking primary care provider to see if family can get more involved in providing care for this angela elderly people. As part of her shortness of breath, we reviewed previous work-up. She is recently had an echocardiogram ordered by cardiology and she has moderate to severe pulmonary hypertension. We saw that result and hope that our 3 L normal saline would not make it worse. She she stated that she felt better with 3 L normal saline.She does have a right arm skin tear, present on admission, from fall before she came in. That was addressed with single Tegaderm dressing. There is no infection. She is asked to follow-up with her medical record librarians teacher. At discharge temperature was 36.4. Pulse 76. Blood pressure supine was 147/72. Blood pressure sitting was 128/67. And blood pressure standing is still 89/43. There is a pulse change from 75-80 3-94. She is with a respiratory rate of 16 and 100% on room air. She is a 5 foot 6 inch tall female who is 64.5 kg. Comfortable, sitting up in chair eating breakfast, watching TV. Neck is without JVD. Lungs are clear. She has a regular rate and rhythm. Ankles have no edema. She demonstrates the ability to get up out of a chair and walk unaided with no increased respiratory effort. Nevertheless, I told her that her blood pressure drops too much when she stands, and to please be careful. Consider using a walker or cane on a regular basis. - ALLERGIES Allergies/Adverse Reactions: Allergies Allergy/AdvReac Type Severity Reaction Status Date / Time No Known Drug Allergies Allergy Verified 01/29/20 13:41 - MEDICATIONS Home Medications: Ambulatory Orders Medication Instructions Recorded Confirmed Calcium Citrate 600 mg PO DAILY 11/17/19 01/30/20 Fludrocortisone [Florinef] 0.1 mg PO DAILY 11/17/19 01/30/20 Furosemide [Lasix] 40 mg PO Q48H 11/17/19 01/30/20 Hydrocortisone [Cortef] 10 mg PO QPM 11/17/19 01/30/20 Hydrocortisone [Cortef] 20 mg PO DAILY 11/17/19 01/30/20 Meclizine HCl 25 mg PO PRN PRN 11/17/19 01/30/20 Omeprazole [PriLOSEC] 20 mg PO DAILY 11/17/19 01/30/20 Tofacitinib Citrate [Xeljanz Xr] 11 mg PO DAILY 11/17/19 01/30/20 amLODIPine [Norvasc] 10 mg PO DAILY 11/17/19 01/30/20 - LABS Result Diagrams: 01/30/20 05:00 01/30/20 05:00"
== END 2020-01-30 13:20 | disposition home or self-care (01) ==
LOC: EDUNIT# → ED 13:21 → MS2 15:19
PROVIDERS: ADMIT Specialist; ATTEND Specialist
DX: E87.1 Hypo-osmolality and hyponatremia (principal); E86.0 Dehydration; I95.1 Orthostatic hypotension; E89.6 Postprocedural adrenocortical (-medullary) hypofunction; I27.20 Pulmonary hypertension, unspecified; S51.011A Laceration without foreign body of right elbow, initial encounter; S50.12XA Contusion of left forearm, initial encounter; I12.9 Hypertensive chronic kidney disease with stage 1 through stage 4 chronic kidney disease, or unspecified chronic kidney disease; N18.30 Chronic kidney disease, stage 3 unspecified; F09 Unspecified mental disorder due to known physiological condition; H91.93 Unspecified hearing loss, bilateral; W19.XXXA Unspecified fall, initial encounter; Y92.012 Bathroom of single-family (private) house as the place of occurrence of the external cause; R53.1 Weakness; R51.9 Headache, unspecified
CPT/HCPCS: 36415; 51701; 71045; 80048; 80053; 82088; 82533; 83690; 83735; 83880; 84100; 84300; 84484; 85025; 85610; 93005; 96372; 96374; 99285; A9270; G0378; 82024

== ENCOUNTER 2020-02-15 12:32 | Outpatient (CLI) | payer MEDICARE | END 2020-02-15 12:33 | disposition home or self-care (01) | LOC: RT 12:32 | PROVIDERS: ATTEND Family Medicine | DX: R06.09 Other forms of dyspnea (principal) | CPT/HCPCS: 94010 ==

== ENCOUNTER 2020-03-09 14:15 | Outpatient (CLI) | payer MEDICARE ==
--- NOTE | 2020-03-09 16:01 | Ultrasound Report ---
PROCEDURE: Carotid Doppler Complete INDICATIONS: SEVERE MITRAL VALVE STENOSIS TECHNIQUE: Color and pulse Doppler interrogation was performed of both carotid systems, with image documentation and velocity measurements. COMPARISON: None. FINDINGS: Right side: Brachial blood pressure: Not measured. Common carotid artery peak systolic velocity: 57 cm/sec. Internal carotid artery peak systolic velocity: 141 cm/sec. Internal carotid artery end diastolic velocity: 18 cm/sec. External carotid artery peak systolic velocity: 199 cm/sec. ICA/CCA peak systolic ratio: 2.5 . Osullivan scale imaging description: Calcified plaque Percent internal carotid artery stenosis: 50-69% . Vertebral artery: Flow direction is antegrade. Left side: Brachial blood pressure: Not measured Common carotid artery peak systolic velocity: 99 cm/sec. Internal carotid artery peak systolic velocity: 140 cm/sec. Internal carotid artery end diastolic velocity: 22 cm/sec. External carotid artery peak systolic velocity: 223 cm/sec. ICA/CCA peak systolic ratio: 1.4 . Osullivan scale imaging description: Calcified plaque Percent internal carotid artery stenosis: 50-69%. Vertebral artery: Flow direction is antegrade. IMPRESSION: Moderate 50-69% stenosis of the origins of the internal carotid arteries bilaterally. The estimate of stenosis included in the report of the imaging study was calculated using the NASCET method Reviewed by: Vicki Nguyen MD, PhD on 03/09/2020 4:00 PM PST Approved by: Vicki Nguyen MD, PhD on 03/09/2020 4:00 PM PST Station ID: [id number]
== END 2020-03-09 14:16 | disposition home or self-care (01) ==
LOC: DI 14:15
PROVIDERS: ATTEND Internal Medicine
DX: I65.23 Occlusion and stenosis of bilateral carotid arteries (principal)
CPT/HCPCS: 93880